=== PATIENT | male | born 1975 | race Caucasian/White ===

== ENCOUNTER → 2019-11-25 | Outpatient (CLI) | payer OTHER | LOC: SJCVCIMAG 07:16 | DX: R94.31 Abnormal electrocardiogram [ECG] [EKG] (principal); I42.9 Cardiomyopathy, unspecified; I10 Essential (primary) hypertension; E78.5 Hyperlipidemia, unspecified; I48.91 Unspecified atrial fibrillation; R53.83 Other fatigue; D68.59 Other primary thrombophilia; Z98.84 Bariatric surgery status ==

== ENCOUNTER → 2019-12-02 | Outpatient (CLI) | payer OTHER ==
[~2019-12-02] VITALS: Ht 182.9 cm; Wt 95.3 kg
[~2019-12-02] MED LIST: ASA81BEC PO; BYSTOLIC10 MG PO; EDARBYCLOR 40-1 EAC1 PO; NORVASC5 M1 PO; ORACEA40 MG PO; XARELTO20 MG PO
--- NOTE | ~2019-12-02 | EKG ---
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
[2019-12-02 07:28] VITALS: BP 120/88
--- NOTE | 2019-12-02 08:57 | TEE ---
[facility] [address] [place] [address] TRANSESOPHAGEAL ECHOCARDIOGRAM Name: SHRUTHI STEWART Room #: REG CLLisa Salomon.#: [id number] Admission: 12/02/19 Attend Phys: Liban Valdovinos MD, Discharge: Date of : 73 Report #: [id number] THIS REPORT FOR: cc: FAM - No family physician/PCP FAM - No family physician/PCP Liban Valdovinos MD [facility] ~ APPROVED REPORT Study performed: 12/02/2019 07:42:49 EXAM: Transesophageal Echocardiogram with Doppler and cardioversion Patient Location: Out-Patient Room #: CV BSA: 2.18 HR: 76 bpm BP: 120/88 mmHg Rhythm: NSR/PVCs Other Information Study Quality: Good Indications Atrial Fibrillation Cardioversion. Hx: Cardioversion X 3. Echo Enhancing Agent Indication: Rule out Shunt Agent(s) / Amount(s) Used: Agitated Saline 7 cc Procedure After obtaining informed consent, patient underwent transesophageal echo in the [employer]. Type of Sedation : Conscious Sedation Sedation was administered by Babrara Osborne RN. Sedation was achieved intravenously with: Versed (4) Fentanyl (100) Transesophageal probe was inserted and advanced into esophagus without difficulty by Liban Valdovinos MD. The BAY was performed without complications. Synchronized Cardioversion acheived with 200 Joules after 1 attempt(s). Rhythm following Synchronized Cardioversion: Normal Sinus Rhythm [facility] [address] [place] [address] TRANSESOPHAGEAL ECHOCARDIOGRAM Name: SHRUTHI STEWART Room #: REG CL [facility].#: [id number] Admission: 12/02/19 Attend Phys: Liban Valdovinos, Discharge: Date of : 73 Report #: [id number] Throughout the procedure, the blood pressure, pulse oximetry, cardiac rhythm, and rate were monitored. The patient tolerated the procedure without adverse effects. Recovery from conscious sedation was uneventful and vital signs were stable. Left Ventricle Left ventricle is dilated. Mild concentric left ventricular hypertrophy. Left ventricular systolic function is moderately decreased. LVEF is 40-45%. Right Ventricle The right ventricle is normal size. The right ventricular systolic function is normal. Atria Left atrium is severely dilated. No thrombus is visualized in the left atrium or appendage. No shunting noted by contrast bubble injection. Right atrium is moderately dilated. Aortic Valve The aortic valve is normal in structure. No aortic regurgitation is present. There is no aortic valvular stenosis. Mitral Valve The mitral valve is normal in structure. Trace mitral regurgitation. No evidence of mitral valve stenosis. Tricuspid Valve The tricuspid valve is normal in structure. Trace tricuspid regurgitation. Pulmonic Valve The pulmonary valve is normal in structure. Great Vessels The aortic root is normal in size. The ascending aorta is normal in size. IVC is normal in size and collapses >50% with inspiration. Pericardium There is no pericardial effusion. <Conclusion> Left ventricular systolic function is moderately decreased. LVEF is 40-45%. [facility] [address] [place] [address] TRANSESOPHAGEAL ECHOCARDIOGRAM Name: SHRUTHI STEWART Room #: REG CL M.R.#: [id number] Admission: 12/02/19 Attend Phys: Liban Valdovinos, Discharge: Date of : 73 Report #: [id number] Both atria are severely dilated. No thrombus is visualized in the left atrium or appendage. No shunting noted by contrast bubble injection. The aortic valve is normal in structure. No aortic regurgitation or stensis. The mitral valve is normal in structure. Trace mitral regurgitation. There is no pericardial effusion. Successful cardioversion of atrial fibrillation to sinus rhythm following a single 200 J biphasic synchronous shock. <ELECTRONICALLY SIGNED> By: Liban Valdovinos MD, [facility] 12/02/1956 4 Liban Valdovinos MD, FAC /INF
== END | disposition home or self-care (01) ==
LOC: CATH 06:35
DX: I48.91 Unspecified atrial fibrillation (principal); I34.0 Nonrheumatic mitral (valve) insufficiency; I10 Essential (primary) hypertension; E78.5 Hyperlipidemia, unspecified; I42.9 Cardiomyopathy, unspecified; Z98.84 Bariatric surgery status; Z79.899 Other long term (current) drug therapy; Z79.82 Long term (current) use of aspirin; Z79.01 Long term (current) use of anticoagulants

== ENCOUNTER 2019-12-21 13:00 | Emergency (ER) | payer OTHER ==
[~2019-12-21] VITALS: Ht 182.9 cm; Wt 95.3 kg
[2019-12-21 13:13] LABS: ABSOLUTE NEUTROPHILS 4.7 thou/uL (1.4-8.2); BASOPHILS 0.4 % (0.0-2.0); EOSINOPHILS 1.1 % (0.0-3.0); HEMATOCRIT 48.5 % (42.0-52.0); HEMOGLOBIN 16.8 gm/dL (14.0-18.0); LYMPHOCYTES 26.6 % (24.0-44.0); MCH 33.5 pg (26.0-34.0); MCHC 34.6 g/dL (28.0-37.0); MCV 96.8 fL (80.0-100.0); MONOCYTES 8.3 % (1.0-8.0); PLATELET COUNT 228 thou/uL (150-400); POLYS 63.6 % (36.0-66.0); RBC 5.01 mil/uL (4.50-6.00); WBC 7.4 thou/uL (4.0-11.0)
[2019-12-21 13:31] LABS: ANION GAP 12 mmol/L (7-16); BUN 29 mg/dL (7-18); CALCIUM 9.5 mg/dL (8.5-10.1); CHLORIDE 102 mmol/L (98-107); CO2 26 mmol/L (21-32); CREATININE 1.2 mg/dL (0.7-1.3); GLUCOSE 86 mg/dL (74-106); POTASSIUM 3.4 mmol/L (3.5-5.1); SODIUM 140 mmol/L (136-145)
[2019-12-21 13:42] LABS: ALBUMIN 4.6 g/dL (3.4-5.0); SGOT 30 U/L (15-37); SGPT 40 U/L (30-65); TOTAL BILIRUBIN 1.3 mg/dL (0.2-1.0); TOTAL PROTEIN 7.7 g/dL (6.4-8.2); TROPONIN-I <0.06 ng/mL (<0.06)
[2019-12-21 16:06] VITALS: BP 136/94
--- NOTE | 2019-12-22 08:37 | EKG ---
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 : 1975 Requested By: Demetrice Scherer Order Number: [id number] MD: Liban Valdovinos Measurements Intervals [place] Rate: 117 P: [place]: QRS: 5 QRSD: 109 T: 208 QT: 312 QTc: 436 Interpretive Statements Atrial fibrillation Ventricular premature complex Borderline low voltage, extremity leads ST and T wave abnormality Compared to ECG 12/02/2019 08:16:26 Sinus bradycardia no longer present Nonspecific change in the ST and T wave segments The inferior Q waves are less pronounced Electronically Signed On 12-22-2019 8:35:12 CDT by Liban Valdovinos [email or web address] <ELECTRONICALLY SIGNED> By: Liban Valdovinos MD, [facility] 12/22/19 0835 1256 1256 Liban Valdovinos MD, [facility] /EPI
== END 2019-12-21 16:07 | disposition home or self-care (01) ==
LOC: ER 13:00
PROVIDERS: Physician Assistant
DX: R00.2 Palpitations (principal); E86.0 Dehydration; I48.91 Unspecified atrial fibrillation; R25.1 Tremor, unspecified; F41.9 Anxiety disorder, unspecified; I10 Essential (primary) hypertension; Z79.899 Other long term (current) drug therapy; Z79.82 Long term (current) use of aspirin

== ENCOUNTER → 2019-12-26 | Outpatient (CLI) | payer OTHER ==
[~2019-12-26] MED LIST changes: +COZAAR100 MG PO; +LANOXIN 0.25M0.25 M1 PO; +SOTALOL 120 MG120 MG PO
[2019-12-26 10:42] LABS: HEMATOCRIT 43.6 % (42.0-52.0); HEMOGLOBIN 15.5 gm/dL (14.0-18.0); MCH 34.3 pg (26.0-34.0); MCHC 35.6 g/dL (28.0-37.0); MCV 96.3 fL (80.0-100.0); RBC 4.53 mil/uL (4.50-6.00); RDW 12.7 % (10.5-14.5); WBC 6.8 thou/uL (4.0-11.0)
[2019-12-26 11:05] LABS: ALBUMIN 3.9 g/dL (3.4-5.0); CALCIUM 8.6 mg/dL (8.5-10.1); CREATININE 0.9 mg/dL (0.7-1.3); POTASSIUM 3.7 mmol/L (3.5-5.1); TOTAL BILIRUBIN 1.2 mg/dL (0.2-1.0); TOTAL PROTEIN 6.4 g/dL (6.4-8.2)
== END ==
LOC: CAT 09:50
PROVIDERS: ATTEND Internal Medicine Cardiovascular Disease
DX: Z01.818 Encounter for other preprocedural examination (principal); R91.1 Solitary pulmonary nodule; M89.38 Hypertrophy of bone, other site; I48.91 Unspecified atrial fibrillation

== ENCOUNTER 2019-12-30 08:35 | Inpatient (IN) | payer OTHER ==
[~2019-12-30] VITALS: Ht 182.9 cm; Wt 98.8 kg
[2019-12-30] VITALS (8 sets, daily range): BP systolic 122–143; BP diastolic 76–89
[~2019-12-30 08:35] MED LIST changes: -COZAAR100 MG PO; -LANOXIN 0.25M0.25 M1 PO; -SOTALOL 120 MG120 MG PO
[2019-12-30 09:21] LABS: ABSOLUTE NEUTROPHILS 2.7 thou/uL (1.4-8.2); BASOPHILS 0.7 % (0.0-2.0); EOSINOPHILS 4.1 % (0.0-3.0); HEMATOCRIT 44.5 % (42.0-52.0); HEMOGLOBIN 15.5 gm/dL (14.0-18.0); LYMPHOCYTES 27.5 % (24.0-44.0); MCV 97.3 fL (80.0-100.0); MONOCYTES 10.4 % (1.0-8.0); PLATELET COUNT 204 thou/uL (150-400); POLYS 57.3 % (36.0-66.0); RBC 4.57 mil/uL (4.50-6.00); RDW 13.1 % (10.5-14.5); WBC 4.8 thou/uL (4.0-11.0)
[2019-12-30 09:35] LABS: INR 1.1; PROTIME 11.7 Seconds (9.3-11.4)
[2019-12-30 09:36] LABS: CALCIUM 8.8 mg/dL (8.5-10.1); CREATININE 0.9 mg/dL (0.7-1.3); POTASSIUM 4.2 mmol/L (3.5-5.1)
[2019-12-30 09:42] LABS: ALBUMIN 3.6 g/dL (3.4-5.0); TOTAL BILIRUBIN 1.1 mg/dL (0.2-1.0); TOTAL PROTEIN 6.3 g/dL (6.4-8.2)
[2019-12-30] MEDS ORDERED: LANOXIN 0.25M0.25 M1 PO (09:49)
--- NOTE | 2019-12-30 17:17 | NUR ---
REC PT FROM PACU, NO REPORT. THEY SAID IT WAS UP TO GABRIELA, THEY GAVE REPORT. PT IS A&0X4, AMB INDEPENDENTLY NORMALLY. HAS TWO GROIN SITES, CIERRA CLOSURE. ONE OF THE NURSES HAD PUSHED HARD DOWN ON HIS GROIN AND HE YELPED. WILL CONTINUE TO MONITOR AND EDUCATE. HAS DE LUNA CATH IN PLACE. KNOWS RESTRICTIONS WITH HEAD MOVEMENT AND BLE. VS BEING TAKEN. SEE SEPARATE INTERVENTIONS FOR ASSESSMENTS. REPORTS OF VTACH PRIOR TO PROCEDURE, AND AFIB NOW. REPORTS OF SPOUSE OF WANTING HIM TO STAY IN THE HOSPITAL UNTIL THURSDAY D/T HEART RHYTHM. GAVE HIM EDUCATION.
[2019-12-31] VITALS (7 sets, daily range): BP systolic 122–153; BP diastolic 73–98
--- NOTE | 2019-12-31 03:43 | NUR ---
ASSESSMENTS CHARTED, MEDS GIVEN CHARTED. PATIENT ON BEDREST AT START OF SHIFT. HAD BEEN TO BAR GAUGER AND LUBRICATOR TENDER FOR AN AFIB ABLATION. BOTH RIGHT AND LEFT GROIN SITES WERE ACCESSED FOR PROCEDURE. PATIENT OFF BEDREST AT 2145. GROIN SITES ARE SOFT, DRY, INTACT. DE LUNA REMOVED. ABLE TO URINATE ADEQUATELY. UP AT YESSI IN ROOM. FALL PRECAUTIONS IN PLACE DURING SHIFT.
--- NOTE | 2019-12-31 08:15 | NUR ---
ASSUMED CARE OF PT AT SHIFT CHANGE, HTN NOTED, PT ASKED ABOUT IT. HEADACHE AND SORE THROAT. ASKED FOR HIS PAIN MEDICATION. A&0X4, FITTING ROOM MAINTENANCE MECHANIC POINTED OUT A SMALL AREA THAT STARTED TO OOZE EARLY THIS A.M. 0300. OUTLINED IN BLACK, NO FURTHER OOZING. PT URINATING AFTER DE LUNA REMOVED. ENCOURAGED HIM TO USE CALL LIGHT FOR ANY NEEDS. WILL RECHECK BP LATER THIS A.M. AFTER ADM OF HIS HOME MEDS. PT VERY AWARE OF HIS HEART BEAT. SEE SEPARATE INTERVENTIONS FOR ASSESSMENTS
--- NOTE | 2019-12-31 10:12 | EKG ---
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
--- NOTE | 2019-12-31 22:07 | NUR ---
ASSESSMENTS CHARTED, MEDS CHARTED GIVEN. PATIENT HAD AFIB ABLATION YESTERDAY BOTH RIGHT AND LEFT GROIN WERE ACCESSED. BOTH SITES ARE SOFT AND DRY. PATIENT RATES PAIN 4/10 AT START OF SHIFT. PATIENT IS SOTOLOL LOADING. PLAN IS FOR PATIENT TO RETURN TO SANDING MACHINE TENDER ON THURSDAY TO CHECK FOR BLOCKAGES. PATIENT UP AT YESSI IN ROOM. FALL PRECAUTIONS IN PLACE DURING SHIFT.
[2020-01-01] VITALS: BP 145/97
[2020-01-01 03:30] VITALS: BP 152/85
[2020-01-01 08:00] VITALS: BP 155/100
--- NOTE | 2020-01-01 08:49 | EKG ---
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
[2020-01-01 12:00] VITALS: BP 145/94
[2020-01-01 17:00] VITALS: BP 148/98
[2020-01-01 20:01] VITALS: BP 116/84
[2020-01-02] VITALS (13 sets, daily range): BP systolic 120–144; BP diastolic 72–99
[2020-01-02 04:50] LABS: HEMATOCRIT 41.1 % (42.0-52.0); HEMOGLOBIN 14.6 gm/dL (14.0-18.0); MCH 34.2 pg (26.0-34.0); MCHC 35.5 g/dL (28.0-37.0); MCV 96.3 fL (80.0-100.0); RBC 4.27 mil/uL (4.50-6.00); RDW 12.7 % (10.5-14.5); WBC 4.5 thou/uL (4.0-11.0)
[2020-01-02 05:00] LABS: CALCIUM 8.8 mg/dL (8.5-10.1); CREATININE 0.9 mg/dL (0.7-1.3); POTASSIUM 3.9 mmol/L (3.5-5.1)
--- NOTE | 2020-01-02 05:35 | NUR ---
PT IS ALERT AND ORINETED X4. LUNGS ARE CLEAR. COMPLAINTS OF BACK PAIN. FEELS BETTER IN RECLINER AND BLANKETS. REPORTS HIS BACK WAS HURTING FROM THE BED AND QUAD MUSCLES. PAIN MEDS GIVEN BEFORE MIDNIGHT AND DISCOMFORT RESOLVED AND PT RESTED. AM PROCEDURE SCHEDULED AND CONSENT ON CHART FOR HEART CATH. NO CONERNS OR ISSUES NOTED THIS AM. CALL LIGHT WITHIN REACH IF NEEDS ASSISTANCE FROM NURSING STAFF. NPO FOR AM PROCEDURE THIS AM.
--- NOTE | 2020-01-02 07:55 | EKG ---
[facility] [address] [place] [address] ELECTROCARDIOGRAM REPORT Name: SHRUTHI STEWART Room #: 210-P 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: [place] NENA : 1975 Requested By: Otoniel Berg Order Number: [id number] MD: Liban Valdovinos Measurements Intervals [place] Rate: 65 P: [place]: QRS: -12 QRSD: 106 T: -61 QT: 416 QTc: 433 Interpretive Statements Atrial fibrillation Borderline low voltage, extremity leads Nonspecific T wave abnormality Compared to ECG 01/01/2020 08:28:50 No significant change was found Electronically Signed On 01-02-2020 7:54:15 CDT by Liban Valdovinos [email or web address] <ELECTRONICALLY SIGNED> By: Liban Valdovinos MD, [facility] 01/02/20 0754 0746 0746 Liban Valdovinos MD, [facility] /EPI
[2020-01-02] MEDS ORDERED: SOTALOL 120 MG120 MG PO (08:54)
[2020-01-02] MEDS ORDERED: COZAAR100 MG PO (08:54)
--- NOTE | 2020-01-02 12:53 | CATHLAB ---
[facility] [place] [address] [place] [address] INVASIVE PROCEDURE REPORT Name: SHRUTHI STEWART Room #: 210-P [facility] M.R.#: [id number] Admission: 12/30/19 Attend Phys: Otoniel Berg MD Discharge: Date of : 73 Report #: [id number] THIS REPORT FOR: cc: FAM - No family physician/PCP FAM - No family physician/PCP Yasmany Caldera MD ~ APPROVED REPORT Study performed: 01/02/2020 08:57:27 Patient Details Patient Status: In-Patient Room #: 210 The patient is a 44 year-old male Event Personnel Yasmany Caldera Pari Mutuel Ticket Seller, Urszula Elliott RTR, PUTTY MAKER Monitor, Tracey Romano RN RN, Nathan Murillo RTR Scrub Procedures Performed Art Access - L femoral artery* Left Heart Cath w/or w/o Coronaries 1677339 [facility] [address] Initial Mod Sed Same Phys/QHP Gr5y 450771 11956 Mod Sed Same Phys/QHP Ea 688891 Hemostasis with Manual pressure Indication Arrhythmia, Atrial fibrillation, Dyspnea, Cardiomyopathy, Chest pain Risk Factors Hypercholesterolemia, Hypertension Procedure Narrative The Left Groin^ was infiltrated with 1% Lidocaine subcutaneous anesthesia. A PINNACLE 4FR Sheath #[id number] sheath was inserted into the LFA^. Coronary angiography was performed using coronary diagnostic catheters. The right coronary system was accessed and visualized with a JR4 catheter. The left coronary system was accessed and visualized with a JL4 catheter. The left ventricle was accessed and visualized with a angled pigtail catheter. Left ventricular/Aortic Valve gradient assessed via catheter pullback. Left ventriculogram was performed in 30 degree projection. Hemostasis was obtained with manual pressure following sheath removal without any complications. The patient tolerated the procedure well and there were no complications associated with the procedure. There was no [facility] [address] [place] [address] INVASIVE PROCEDURE REPORT Name: SHRUTHI STEWART Room #: 210-P [facility] IN ..#: [id number] Admission: 12/30/19 Attend Phys: Otoniel Berg Discharge: Date of : 73 Report #: [id number]. Intraoperative Conscious Sedation Sedation start time: 09:17 Case end Time: 09:50 Fentanyl 50 mcg Versed 1 mg Fluoro Time: 4.20 minutes Dose: DAP 7488.00 cGycm2 1323 mGy Contrast Type and Amount: Omnipaque- 92ml Coronary Angiography The patient's coronary anatomy is right dominant. Diagnostic Cath Left Main The left main artery is a large-caliber vessel, appears angiographically normal. LAD The LAD is a moderate-sized caliber vessel, travels down the anterior wall and wraps around the apex. There are no flow-limiting lesions the LAD. There may be minimal luminal irregularities within the midsegment. Diagonal 1 This is a moderate-sized caliber vessel, appears angiographically normal. Circumflex There is a patent vessel, appears angiographically normal. OM1 This is a moderate-sized caliber vessel, with no flow-limiting lesions. There may be minimal luminal irregularities within the midsegment. OM2 There is a small caliber vessel, appears angiographically normal. Right Coronary The RCA is a dominant vessel, with no flow-limiting lesions. R PDA This is a moderate-sized caliber vessel, with no flow-limiting lesions. RPLV This is a moderate-sized caliber vessel, with no flow-limiting lesions. Left Ventriculography The left ventricle is normal in size with Abnormal contractility. The left ventricular ejection fraction is estimated to be 40%. Hemodynamics The aortic pressure is 148/95 mmHg with a mean of 119 mmHg. The left ventricular pressure is 143/1 mmHg with a mean of mmHg. The left ventricular end diastolic pressure is 17 mmHg. [facility] [address] [place] [address] INVASIVE PROCEDURE REPORT Name: SHRUTHI STEWART Room #: 210-P [facility] IN ..#: [id number] Admission: 12/30/19 [facility]end [facility]: [facility] Discharge: Date of : 73 Report #: [id number] Conclusion 1. Angiographically normal coronary arteries. There may be minimal luminal irregularities as noted. 2. Moderate nonischemic cardiomyopathy. 3. Recommend guideline directed medical therapy. <ELECTRONICALLY SIGNED> By: Yasmany Caldera MD 01/02/20 1252 125 125 Yasmany Caldera MD /INF
--- NOTE | 2020-01-02 16:49 | NUR ---
ASSESSMENT CHARTED. PT ALERT AND ORIENTED. VSS. DENIED HAVING PAIN. HAD AFIB ABLATION TODAY. LEFT GROIN INCISION, C/D/I. NO HEMATOMA NOTED. ORDERS GIVEN TO DISCHARGE PT TO HOME. DISCHARGE INSTRUCTIONS GIVEN TO PT AND THE .
--- NOTE | 2020-01-17 16:00 | P ---
[facility] [place] [address] PROCEDURE REPORT Name: SHRUTHI STEWART Room #: 210-P [facility] IN M.R.#: [id number] Admission: 12/30/19 Attend Phys: Otoniel Berg MD Discharge: 01/02/20 Date of : 73 Report #: [id number] THIS REPORT FOR: cc: ELIANA - No family physician/PCP ELIANA - No family physician/PCP Otis,Otoniel Winston MD ~ CC: ELIANA physician/PCP Otoniel Berg DIAGNOSES: 1. Frequent premature ventricular contractions. 2. Nonsustained ventricular tachycardia. 3. Nonischemic cardiomyopathy. 4. Persistent atrial fibrillation. PROCEDURES PERFORMED: 1. Ventricular tachycardia ablation, CPT code 16545. 2. EP with left atrial pacing and recording, CPT code 22371. 3. Program stimulation pacing after IV drug infusion, CPT code 73415. 4. Intracardiac echo, CPT code 88023. 5. Arterial line placement, CPT code 65331. HISTORY: The patient is a 44-year-old male with a history of longstanding persistent atrial fibrillation for approximately 5 years, recently started having increased shortness of breath and fatigue. He had an echocardiogram showing EF of 40-45% and he work shelter monitor showing a PVC burden of 7.8%. He was scheduled to undergo AFib ablation today, but prior to this procedure on telemetry, he had a 15 beat run of nonsustained VT with associated lightheadedness. This is similar to other episodes he has had at home. Therefore, we decided to cancel AFib ablation and proceed with an EP study and PVC ablation. ANESTHESIA: The patient underwent general anesthesia with no anesthesia related complications. DESCRIPTION OF PROCEDURE: The patient underwent informed consent, where we discussed the details of the procedure including the risks, which include but not limited to bleeding, vascular damage, stroke, MS as well as damage to the [place] conduction system requiring permanent pacemaker. We also discussed that if he has sustained monomorphic ventricular tachycardia, we would discuss ICD implantation. He understood these risks and is willing to proceed. The patient was brought to the EP laboratory in a fasting and unsedated state and prepped and draped in a sterile fashion. I obtained right femoral arterial access as well as bilateral femoral vein access. In the right femoral artery, I placed an 8-[place] short sheath. In the right femoral vein, I placed an 8-[place] short sheath, a 6-[place] short sheath and a 9-[place] short sheath. In [facility] [address] [place] [address] PROCEDURE REPORT Name: SHRUTHI STEWART Room #: 210-P DIS IN .R.#: [id number] Admission: 12/30/19 Attend Phys: Otoniel Berg MD Discharge: 01/02/20 Date of : 73 Report #: [id number] the left femoral vein, I placed a 6-[place] short sheath and a 7-[place] short sheath. Next, under fluoroscopy, I placed a Quadripolar catheter at the HRA and His positions and a Decapolar catheter in the coronary sinus for left atrial pacing and recording via the 9-[place] short sheath, I placed an ICE catheter for intracardiac ultrasound. At baseline, the patient was in atrial fibrillation with controlled ventricular response and was also demonstrating two predominant PVC morphologies. The most frequent PVC morphology was left bundle-branch block transitions in V5 and positive in lead II, III and aVF. The second PVC morphology was right bundle-branch block positive for concordance in the precordial leads. Next, ventricular pacing was performed and ventricular ERP was noted at 220 milliseconds at a [address] cycle length. Next, ventricular stimulation was performed at cycle lengths of 600, 500, and 400 milliseconds. The S5 protocol was utilized and the patient had no sustained monomorphic ventricular tachycardia. Next, I initially started mapping the right ventricular outflow tract for the 2 PVCs and it was clearly late from the right ventricular outflow tract, both above and below the cusps. Therefore, the patient was systemically heparinized and I went retrograde into the left ventricle with a [employer] Ros[employer] PentaRay catheter. I initially mapped in the left ventricle and everything was quite late here. It appeared to be earlier at the left ventricular outflow tract and was found to be earliest in the left coronary cusp. Due to the infrequency of the PVCs, the patient was started on isoproterenol infusion. This increased the PVC burden. I therefore exchanged for the [employer] ThermoCool ablation catheter and performed a more detailed mapping of the cusps. At the earliest site within the cusps, which was in the left coronary cusp and below the coronary arteries within a safe distance based on intracardiac ultrasound, I performed pace mapping and I got pace maps that were 90% identical to PVC #1, which is left bundle-branch block morphology PVC. These pace maps were around 80% similar to the other PVC morphology that was right bundle-branch block in nature. Therefore, ablation was performed at this site. However, the patient continued to have PVC #1. I therefore was able to reposition and obtained better contact in this region and appeared that I actually suppress the PVC. Additional ablation was performed here in this region and again I was a good distance away from the left main. After ablation here, I no longer saw PVC #1. The patient would occasionally still have a PVC #2, which was right bundle-branch block in nature. I mapped for this one is well and I did not find a very early location anywhere within the left ventricle, mitral annulus, left ventricular outflow tract or within the coronary cusps. This PVC was quite wide with a long intrinsicoid deflection, which makes me think it may be epicardial in nature. After we completed the bleeding, I did monitored for a period of time and reinitiated isoproterenol and I did not see PVC #1 and we would occasionally see a PVC #2. As such, the procedure was concluded. The patient remained in atrial fibrillation with a ventricular rate of 720 milliseconds, QRS duration 95 milliseconds, QT interval 387 milliseconds. As such, the patient received systemic protamine and once ACT was within acceptable range, catheters and sheaths were pulled and hemostasis obtained. The patient awoke neurologically and hemodynamically intact. No complications [facility] [address] [place] [address] PROCEDURE REPORT Name: SHRUTHI STEWART Room #: 210-P [facility] IN M.R.#: [id number] Admission: 12/30/19 Attend Phys: Otoniel Berg MD Discharge: 01/02/20 Date of : 73 Report #: [id number] and no significant bleeding. CONCLUSIONS: 1. Successful ablation of premature ventricular contraction #1, which was localized to the left coronary cusp. 2. Premature ventricular contraction #2, which was more infrequent, was not localized and likely has an epicardial origin. PLAN: The patient will be monitored in the CCU over the weekend. We will initiate sotalol therapy to suppress this other PVC. We will reinitiate anticoagulation therapy for his atrial fibrillation. <ELECTRONICALLY SIGNED> By: Otoniel Berg MD 01/17/20 1600 1402 1659 Otoniel Berg MD /nt
== END 2020-01-02 17:30 | disposition home or self-care (01) | DRG 274 ==
LOC: CATH 08:35 → 2N 08:35 → CATH 08:53 → 2N 15:50 → CATH 17:24 → 2N 01-02 17:30
PROVIDERS: Internal Medicine Cardiovascular Disease; ADMIT Internal Medicine Cardiovascular Disease; ATTEND Internal Medicine Cardiovascular Disease
DX: I47.2 Ventricular tachycardia (principal); I42.8 Other cardiomyopathies; I48.19 Other persistent atrial fibrillation; I10 Essential (primary) hypertension; Z20.828 Contact with and (suspected) exposure to other viral communicable diseases; Z98.890 Other specified postprocedural states; Z98.84 Bariatric surgery status; Z79.899 Other long term (current) drug therapy; Z79.01 Long term (current) use of anticoagulants
CPT/HCPCS: 10081; 10797; 70005

== ENCOUNTER → 2020-01-17 | Outpatient (CLI) | payer OTHER ==
[~2020-01-17] MED LIST changes: +COZAAR100 MG PO; +LANOXIN 0.25M0.25 M1 PO; +SOTALOL 120 MG120 MG PO
[2020-01-17 07:56] VITALS: BP 141/102
--- NOTE | 2020-02-03 13:18 | P ---
[facility] [place] [address] PROCEDURE REPORT Name: SHRUTHI STEWART Room #: [facility].#: [id number] Admission: 01/17/20 Attend Phys: Otoniel Berg MD Discharge: Date of : 73 Report #: [id number] THIS REPORT FOR: cc: ELIANA - No family physician/PCP FAM - No family physician/PCP Otoniel Berg MD ~ CC: ELIANA physician/PCP Otoniel Berg PROCEDURE: Implantable loop recorder insertion. PREOPERATIVE DIAGNOSES: 1. Lightheadedness. 2. Palpitations. 3. Frequent premature ventricular contractions. POSTOPERATIVE DIAGNOSES: 1. Lightheadedness. 2. Palpitations. 3. Frequent premature ventricular contractions. DESCRIPTION OF PROCEDURE: The patient underwent informed consent. He was prepped and draped in a sterile fashion. Lidocaine was injected at the incision site. The device was injected under the skin and a single layer of suture was performed. Surgical glue was placed to outer skin layer. The patient had no procedure related complications. Implanted device is [employer] Reveal LINQ, serial #[id number]. The device was programmed to look for episodes of nonsustained VT, greater than 150 beats per minute. <ELECTRONICALLY SIGNED> By: Otoniel Berg MD 02/03/20 1318 1119 1404 Otoniel Berg MD /nt
== END | disposition home or self-care (01) ==
LOC: CATH 06:55
PROVIDERS: ATTEND Internal Medicine Cardiovascular Disease
DX: R00.2 Palpitations (principal); I49.3 Ventricular premature depolarization; R42 Dizziness and giddiness; Z79.899 Other long term (current) drug therapy; Z79.01 Long term (current) use of anticoagulants; Z98.890 Other specified postprocedural states

== ENCOUNTER → 2020-03-06 | Outpatient (CLI) | payer OTHER ==
[~2020-03-06] MED LIST changes: +NORVASC 2.5 MG2.5 M1 PO; +SOTALOL 120 MG120 M1 PO
== END ==
LOC: LAB 07:55
PROVIDERS: ATTEND Internal Medicine Cardiovascular Disease
DX: Z01.818 Encounter for other preprocedural examination (principal); Z11.59 Encounter for screening for other viral diseases

== ENCOUNTER 2020-03-09 06:23 | Observation (INO) | payer OTHER ==
[2020-03-09] VITALS (12 sets, daily range): BP systolic 110–138; BP diastolic 68–105
[~2020-03-09] VITALS: Ht 182.9 cm; Wt 99.8 kg
[~2020-03-09 06:23] MED LIST changes: -NORVASC 2.5 MG2.5 M1 PO; -SOTALOL 120 MG120 M1 PO
[2020-03-09 07:20] LABS: ABSOLUTE NEUTROPHILS 2.2 thou/uL (1.4-8.2); BASOPHILS 0.7 % (0.0-2.0); EOSINOPHILS 4.8 % (0.0-3.0); HEMATOCRIT 43.4 % (42.0-52.0); HEMOGLOBIN 15.1 gm/dL (14.0-18.0); LYMPHOCYTES 35.3 % (24.0-44.0); MCHC 34.8 g/dL (28.0-37.0); MCV 97.9 fL (80.0-100.0); MONOCYTES 10.2 % (1.0-8.0); PLATELET COUNT 198 thou/uL (150-400); RBC 4.43 mil/uL (4.50-6.00); RDW 13.4 % (10.5-14.5); WBC 4.5 thou/uL (4.0-11.0)
[2020-03-09 07:34] LABS: APTT 31.9 Seconds (24.5-32.8); CALCIUM 8.7 mg/dL (8.5-10.1); INR 1.1; PROTIME 11.4 Seconds (9.3-11.4)
[2020-03-09 07:38] LABS: ALBUMIN 3.8 g/dL (3.4-5.0); TOTAL BILIRUBIN 0.9 mg/dL (0.2-1.0); TOTAL PROTEIN 6.8 g/dL (6.4-8.2)
[2020-03-09] MEDS ORDERED: NORVASC 2.5 MG2.5 M1 PO (08:01)
[2020-03-09] MEDS ORDERED: ASA81BEC PO (08:02)
[2020-03-09] MEDS ORDERED: ORACEA40 MG PO (08:04)
[2020-03-09] MEDS ORDERED: XARELTO20 MG PO (08:05)
[2020-03-09] MEDS ORDERED: SOTALOL 120 MG120 M1 PO (08:07)
--- NOTE | 2020-03-09 19:18 | NUR ---
ASSUMMED PT CARE AT APPROXIMATELY 1300. PT A&O X4. ASSESSMENT CHARTED. FALL PRECAUTIONS IN PLACE. PT DENIES HAVING CHEST PAIN. PT DENIES HAVING SOB. PT DENIES HAVING ACUTE PAIN. PT POST ABLATION. HEART RHYTHM STABLE. VITAL SIGNS STABLE. POST REMOVAL OF PRESSURE DRESSING, PT GROIN MINIMALY BLEEDING. POST BEDREST PT AMBULATES STEADY. DE LUNA DC. AWAITNG POST DE LUNA REMOVAL VOID. R GROIN CONTINUOUSLY BLEEDING. HELD PRESSURE FOR [address] HARDY, DR. HARDY STATED UNDERSTANDING AND STATED FOR PT TO HAVE 6 ADDITIONAL HRS OF BEDREST. BEDREST IMPLEMENTED. INFORMED PT ABOUT POC. PT STATED UNDERSTANDING AND DENIED HAVING FURTHER QUESTIONS. PT COMFORTABLE. PT DENIES HAVING FURTHER CONCERNS.
[2020-03-10 03:05] VITALS: BP 152/103
--- NOTE | 2020-03-10 08:15 | NUR ---
ASSUME CARE 1900. PT/VITALS STABLE. DENIES ANY PAIN. TOLERATES ACTIVITY WELL. SR ON MONITOR WITH REGULAR HR RATE. NO DISTRESS/ ADEQUATE REST NOTED. PROGRESSING WELL WITH POC. ASSESSMENT CHARTED. PRGORESSING WELL WITH POC. PLAN IS POSSIBLE DISCHARGE TODAY. WILL CONTINUE TO MONITOR AND FOLLOW [facility] POC
[2020-03-10 08:20] VITALS: BP 148/102
--- NOTE | 2020-03-10 09:38 | NUR ---
ASSUMED CARE OF PT AT SHIFT CHANGE, HIGH BPS NOTED AT 0300, PT STATES HE'S BEEN UP SINCE 0300 WALKING HALLS, WILL CONTINUE TO MONITOR. REPORTS OF BLEEDING AFTER SHIFT CHANGE LAST NIGHT AND PT NEEDING TO LIE WITH LEG IMMOBILIZED FOR ANOTHER SIX HOURS, SPOUSE AT BEDSIDE CURRENTLY, PT AMBULATING STEADY AND QUICKLY. A&0X4, APPEARS IN GOOD SPIRITS.
[2020-03-10 11:40] VITALS: BP 148/102
[2020-03-10 11:44] VITALS: BP 148/102
--- NOTE | 2020-03-12 11:36 | P ---
[facility] [place] [address] PROCEDURE REPORT Name: SHRUTHI STEWART Room #: 212-P [facility] Nitza Joyce#: [id number] Admission: 03/09/20 Attend Phys: Otoniel Berg MD Discharge: 03/10/20 Date of : 73 Report #: [id number] THIS REPORT FOR: cc: ELIANA - Petra family physician/PCP FAM - No family physician/PCP Otoniel Berg MD ~ CC: ELIANA physician/PCP Otoniel Berg PREOPERATIVE DIAGNOSIS: Atrial fibrillation. POSTOPERATIVE DIAGNOSIS: Atrial fibrillation. HISTORY: The patient is a 44-year-old who has a history of longstanding atrial fibrillation of several years, also status post gastric bypass surgery. He is status post recent PVC ablation. He has a mild nonischemic cardiomyopathy. He is here for atrial fibrillation ablation. PROCEDURES PERFORMED: 1. Atrial fibrillation ablation, CPT code 33395. 2. 3D mapping, CPT code 10689. 3. Intracardiac echo, CPT code 65258. 4. Focal ablation, CPT code 35199. ANESTHESIA: The patient underwent MAC anesthesia with no anesthesia related complications. DESCRIPTION OF PROCEDURE: The patient underwent informed consent. We discussed the details of the procedure including the risks, which include but not limited to bleeding, infection, vascular damage, cardiac perforation as well as stroke and NC. He understood these risks and is willing to proceed. The patient was brought to EP laboratory in a fasting and sedated state, prepped and draped in a sterile fashion. I injected lidocaine at the right groin and obtained access to the right femoral vein x 3, placing an 8, 9 and 7-[place] short sheath using the modified Seldinger technique. Next, under fluoroscopy, Decapolar catheter was easily placed in the coronary sinus and ICE catheter was placed in the right atrium. Using intracardiac ultrasound, I created a 3D geometry of the left atrium and was able to identify the two left and two right pulmonary veins. He did have a large left atrium. This was merged with his cardiac CT scan. Next, the patient was systemically heparinized and a transseptal was performed using an SL1 sheath and [place] needle. This was straightforward. Once in the left atrium, I exchanged for the cryo sheath and placed the Lasso catheter in the left atrium and created a detailed 3D voltage map of the left atrium. There was a significant enlargement of the left atrium and significant myocardial fibrosis with fractionated atrial electrograms throughout the left atrium. Next, the cryoballoon was placed into the left [facility] [address] [place] [address] PROCEDURE REPORT Name: SHRUTHI STEWART Room #: 212-P DIS Nitza Joyce#: [id number] Admission: 03/09/20 Attend Phys: Otoniel Berg MD Discharge: 03/10/20 Date of : 73 Report #: [id number] atrium and I started by isolating the pulmonary veins. The left superior pulmonary vein underwent single 4-minute freeze, the vein isolated within 30 seconds. The left inferior pulmonary vein underwent two 4-minute freezes and isolated during the second freeze within 30 seconds. The right superior pulmonary vein underwent 120-second freeze and a 60-second freeze. There was some slight phrenic nerve weakening, but I came off in time and this was fully recovered. The vein was isolated after this freeze. I then turned my attention in the right inferior pulmonary vein and performed a single 3-minute freeze as the vein isolated within 20 seconds. Next, given his extensive left atrial scarring longstanding atrial fibrillation, I decided to perform posterior wall isolation as well. I started by performing 4 posterior roof freezes from the left superior pulmonary vein, each of 3 minutes duration. I then performed 4 freezes anchored from the left inferior pulmonary vein along the inferior posterior wall region. I then went to the right-sided veins and performed posterior wall freezes anchored from the right superior and right inferior pulmonary veins. I performed a single freeze from each of these veins. Of note, the phrenic nerve was monitored during the right-sided freezes during the posterior wall. There were never any phrenic nerve issues and esophageal temperatures were closely monitored throughout all the posterior wall freezes and these remained within normal limits. I then removed the cryoballoon from the left atrium and performed a repeat voltage map which showed that we had isolated the pulmonary veins as well as posterior wall of the left atrium. The patient was then prepped for cardioversion. Two attempts of cardioversion at 200 joules were unsuccessful. However, we placed the patches in a standard AP position after removing the CARTO patches and taoist of sinus rhythm was achieved. The patient remained in sinus rhythm with a sinus cycle length of 1055 milliseconds, [place] interval 200 milliseconds, QRS duration ____ milliseconds, QT interval 495 milliseconds. As such, the patient received systemic protamine and sheaths were pulled. Hemostasis was obtained. A [id number] suture and a 3-way stopcock closure was performed to the right groin. CONCLUSIONS: 1. Successful atrial fibrillation ablation. 2. Successful pulmonary vein isolation. 3. Successful posterior wall isolation. <ELECTRONICALLY SIGNED> By: Otoniel Berg MD 03/12/20 1136 1056 1253 Otoniel Berg MD /nt
--- NOTE | 2020-03-12 12:41 | D ---
[facility] [place] [address] DISCHARGE SUMMARY Name: SHRUTHI STEWART Room #: 212-P [id number] Admission: 03/09/20 Attend Phys: Otoniel Berg MD Discharge: 03/10/20 Date of : 73 Report #: [id number] THIS REPORT FOR: cc: ELIANA - Petra family physician/PCP ELIANA - Petra family physician/PCP Erik Smith MD ~ THIS REPORT FOR: //name// CC: ELIANA physician/PCP Otoniel Berg DATE OF SERVICE: 03/10/2020 ADMITTING DIAGNOSES: 1. Paroxysmal symptomatic atrial fibrillation. 2. Prior premature ventricular contraction ablation. PROCEDURE PERFORMED: Atrial fibrillation. DISCHARGE MEDICATIONS: Home meds. FOLLOWUP: Dr. Berg in 3 months, primary physician in 7-10 days. DISCHARGE DIET: Home diet. BRIEF CLINICAL HISTORY: See history and physical in the chart. HOSPITAL COURSE: The patient was admitted to the hospital and underwent uncomplicated atrial fibrillation. Postprocedure, the patient had some mild bleeding from his puncture site, was laid and pressure applied. Further bed rest, this resolved. He was allowed to ambulate without difficulty and without recurrent bleeding. He proceeds with being discharged in improved and stable condition. <ELECTRONICALLY SIGNED> By: Erik Smith MD 03/12/20 1241 1047 1059 Erik Smith MD /nt
== END 2020-03-10 12:05 | disposition home or self-care (01) ==
LOC: CATH 06:23 → 2N 13:19 → CATH 15:32 → 2N 03-10 12:05
PROVIDERS: ADMIT Internal Medicine Cardiovascular Disease; ATTEND Internal Medicine Cardiovascular Disease
DX: I48.91 Unspecified atrial fibrillation (principal); I42.8 Other cardiomyopathies; I47.2 Ventricular tachycardia; I10 Essential (primary) hypertension; Z79.82 Long term (current) use of aspirin; Z79.899 Other long term (current) drug therapy
CPT/HCPCS: 62110; 62900; 65020; 65040; 70005

== ENCOUNTER → 2020-06-20 | Outpatient (CLI) | payer OTHER ==
[~2020-06-20] MED LIST changes: +NORVASC 2.5 MG2.5 M1 PO; +SOTALOL 120 MG120 M1 PO
== END ==
LOC: SJCVCIMAG 07:48
PROVIDERS: ATTEND Internal Medicine Cardiovascular Disease
DX: I08.3 Combined rheumatic disorders of mitral, aortic and tricuspid valves (principal); I48.91 Unspecified atrial fibrillation; I25.5 Ischemic cardiomyopathy; I49.3 Ventricular premature depolarization; Z79.899 Other long term (current) drug therapy